=== PATIENT | female | born 1980 | race Two or more races ===

== ENCOUNTER 2021-02-22 18:35 | Emergency (ER) | payer OTHER ==
--- NOTE | 2021-02-22 21:46 | ED Physician Documentation ---
PD HPI ABD PAIN - Stated complaint Stated Complaint: ABD PX - Chief complaint Chief Complaint: Abd Pain - History obtained from History obtained from: Patient - History of Present Illness Timing - onset: How many weeks ago (2) Timing - details: Constant, Waxing and waning Quality: Cramping, Pain Location: All over / everywhere (predominantly across upper abdomen) Improved by: Laying still Worsened by: Eating, Palpation Associated symptoms: Nausea. No: Fever, Vomiting Similar symptoms before: Has not had sx before Recently seen: Not recently seen - Additional information Additional information: patient is hearing impaired; [employer] used for ASL translation. patient is visiting from [place]. She c/o constant cramping pain in abdomen, predominantly across upper abdomen and worst in epigastrium. It is worse with eating. She has had nausea but no vomiting. Pain started 2 weeks ago. She says she has had a cholecystectomy. She also says she gets heartburn but her usual meds (omeprazole and myl[place]) have not been helping with these symptoms recently. Review of Systems Constitutional: denies: Fever Cardiac: denies: Chest pain / pressure Respiratory: denies: Cough GI: reports: Abdominal Pain, Nausea. denies: Vomiting PD PAST MEDICAL HISTORY - Past Medical History Past Medical History: Yes GI: GERD - Past Surgical History General: Cholecystectomy - Present Medications Home Medications: Ambulatory Orders Medication Instructions Recorded Confirmed Ondansetron Odt [Zofran] 4 mg TL Q6H PRN #14 tablet 02/23/21 oxyCODONE [Roxicodone] 5 - 10 mg PO Q6H PRN #14 tablet 02/23/21 - Allergies Allergies/Adverse Reactions: Allergies Allergy/AdvReac Type Severity Reaction Status Date / Time Penicillins Allergy Unknown Verified 02/22/21 22:43 PD ED PE NORMAL - Vitals Vital signs reviewed: Yes - General General: Alert and oriented X 3, No acute distress, Well developed/nourished - HEENT HEENT: Moist mucous membranes - Neck Neck: Supple, no meningeal sign - Cardiac Cardiac: RRR, No murmur - Respiratory Respiratory: No respiratory distress, Clear bilaterally - Abdomen Abdomen: Soft, Non distended, Other (diffusely TTP, most tender across upper abdomen. no rebound, no guarding) - Derm Derm: Normal color, Warm and dry Results - Vitals Vitals: Vital Signs - 24 hr 02/22/21 02/22/21 02/22/21 18:52 19:00 20:58 Temperature 36.8 C 36.9 C Heart Rate 76 109 H 101 H Respiratory 15 18 18 Rate Blood Pressure 129/71 136/88 H 134/82 H O2 Saturation 100 100 100 02/22/21 02/22/21 02/23/21 22:00 23:15 00:31 Temperature 36.9 C Heart Rate 109 H 98 Respiratory 18 Rate Blood Pressure 136/88 H 116/75 O2 Saturation 98 02/23/21 02/23/21 02:33 02:41 Temperature 36.8 C 36.8 C Heart Rate 101 H 101 H Respiratory 16 16 Rate Blood Pressure 126/89 H 126/89 H O2 Saturation 98 98 Oxygen O2 Source Room air - Labs Labs: Laboratory Tests 02/22/21 02/22/21 02/22/21 22:14 23:03 23:03 WBC 13.4 H RBC 4.34 Hgb 13.0 Hct 39.7 MCV 91.5 MCH 30.0 MCHC 32.7 RDW 13.1 Plt Count 346 MPV 9.3 Neut # (Auto) 9.2 H Lymph # (Auto) 2.9 Carbon # (Auto) 1.2 H Eos # (Auto) 0.0 Baso # (Auto) 0.0 Absolute Nucleated RBC 0.00 Nucleated RBC % 0.0 Sodium 137 Potassium 3.2 L Chloride 106 Carbon Dioxide 23 Anion Gap 8.0 BUN 7 Creatinine 0.6 Estimated GFR (MDRD) 110 Glucose 93 Calcium 8.1 L Total Bilirubin 0.8 AST 27 ALT 48 Alkaline Phosphatase 102 Total Protein 6.8 Albumin 2.9 L Globulin 3.9 Albumin/Globulin Ratio 0.7 L Lipase 29 Serum HCG, Qual NEGATIVE Urine Color Urine Clarity Urine pH Ur Specific Fowler Urine Protein Urine Glucose (UA) Urine Ketones Urine Occult Blood Urine Nitrite Urine Bilirubin Urine Urobilinogen Ur Leukocyte Esterase Urine RBC Urine WBC Ur Squamous Epith Cells Urine Bacteria Ur Microscopic Review Urine Culture Comments Urine HCG, Qual 02/22/21 23:43 WBC RBC Hgb Hct MCV MCH MCHC RDW Plt Count MPV Neut # (Auto) Lymph # (Auto) Carbon # (Auto) Eos # (Auto) Baso # (Auto) Absolute Nucleated RBC Nucleated RBC % Sodium Potassium Chloride Carbon Dioxide Anion Gap BUN Creatinine Estimated GFR (MDRD) Glucose Calcium Total Bilirubin AST ALT Alkaline Phosphatase Total Protein Albumin Globulin Albumin/Globulin Ratio Lipase Serum HCG, Qual Urine Color YELLOW Urine Clarity CLEAR Urine pH 6.5 Ur Specific Fowler 1.020 Urine Protein NEGATIVE Urine Glucose (UA) NEGATIVE Urine Ketones >=80 H Urine Occult Blood MODERATE H Urine Nitrite NEGATIVE Urine Bilirubin NEGATIVE Urine Urobilinogen 1 (NORMAL) Ur Leukocyte Esterase NEGATIVE Urine RBC 6-10 H Urine WBC 0-3 Ur Squamous Epith Cells MOD Squamous H Urine Bacteria Rare Ur Microscopic Review INDICATED Urine Culture Comments NOT INDICATED Urine HCG, Qual NEGATIVE - Rads (name of study) CT A/P with IV contrast Radiology: Prelim report reviewed, See rad report PD MEDICAL DECISION MAKING - ED course Complexity details: reviewed results, re-evaluated patient, considered differential, d/w patient ED course: Reassuring blood tests (mild leukocytosis, mild hypokalemia). Despite normal lipase, CT A/P reveals peripancreatic inflammation s/o pancreatitis. I reviewed these results with patient; she reports good pain relief with the toradol and no nausea after IV zofran. She still has some pain and some residual TTP in epigastrium; she is provided a take-home pack of percocet and rx for oxycodone and zofran. Instructed to avoid fatty/greasy/fried foods, and to start with liquid diet today, advance each day as tolerated. I am prescribing a short course of short-acting opioid pain medication for this patient. I have reviewed the patients [employer] and no concerning findings were noted. I have discussed that the opioids are for short term therapy only, and will not be refilled from the ED. Departure - Departure Disposition: 01 Home, Self Care Clinical Impression: Pancreatitis Qualifiers: Chronicity: acute Pancreatitis type: unspecified pancreatitis type Acute pancreatitis complication: no infection or necrosis Qualified Code(s): K85.90 - Acute pancreatitis without necrosis or infection, unspecified Condition: Good Instructions: ED Pancreatitis Prescriptions: oxyCODONE [Roxicodone] 5 - 10 mg PO Q6H PRN #14 tablet PRN Reason: Pain Ondansetron Odt [Zofran] 4 mg TL Q6H PRN #14 tablet PRN Reason: Nausea / Vomiting Forms: Activity restrictions Discharge Date/Time: 02/23/21 03:02
[2021-02-22] MEDS ORDERED: SODIUM CHLORIDE 0.9% 1,000 ML IV STA (22:06)
[2021-02-22] MEDS ORDERED: KETOROLAC 30 MG/ML VIAL IVP STA (22:06)
[2021-02-22] MEDS ORDERED: ONDANSETRON 4 MG/2 ML VIAL IVP STA (22:06)
[2021-02-22 22:22] LABS: BASOPHILS % (AUTO) 0.2 %; EOSINOPHILS % (AUTO) 0.2 %; HCT - HEMATOCRIT 39.7 % (37.0-47.0); LYMPHOCYTES # (AUTO) 2.9 10^3/uL (1.5-3.5); LYMPHOCYTES % (AUTO) 21.6 %; MEAN CORPUSCULAR HGB CONC 32.7 g/dL (32.0-36.0); MEAN CORPUSCULAR VOLUME 91.5 fL (81.0-99.0); MEAN PLATELET VOLUME 9.3 fL (7.9-10.8); MONOCYTES # (AUTO) 1.2 10^3/uL (0.0-1.0); MONOCYTES % (AUTO) 8.7 %; NEUTROPHILS # (AUTO) 9.2 10^3/uL (1.5-6.6); NEUTROPHILS % (AUTO) 68.9 %; PLT - PLATELET COUNT 346 10^3/uL (130-450); RED BLOOD COUNT 4.34 10^6/uL (4.20-5.40); RED CELL DISTRIBUTION WIDTH 13.1 % (12.0-15.0); WHITE BLOOD COUNT 13.4 x10^3/uL (4.8-10.8)
[2021-02-22] MEDS ORDERED: PANTOPRAZOLE 40 MG VIAL IVP STA (22:25)
[2021-02-22] MEDS ORDERED: IOPAMIDOL-300 100 ML VIAL ONE (22:47)
[2021-02-22 23:25] LABS: ALBUMIN 2.9 g/dL (3.2-5.5); ALBUMIN/GLOBULIN RATIO 0.7 (1.0-2.2); BILIRUBIN,TOTAL 0.8 mg/dL (0.2-1.0); CALCIUM 8.1 mg/dL (8.5-10.3); CREATININE 0.6 mg/dL (0.4-1.0); POTASSIUM 3.2 mmol/L (3.5-5.0); TOTAL PROTEIN 6.8 g/dL (6.7-8.2)
[2021-02-22 23:55] LABS: GLUCOSE, URINE (UA) NEGATIVE (NEGATIVE); KETONES,URINE (UA) >=80 mg/dL (NEGATIVE); LEUKOCYTE ESTERASE, URINE NEGATIVE (NEGATIVE); NITRITE,URINE NEGATIVE (NEGATIVE); OCCULT BLOOD,URINE MODERATE (NEGATIVE); PH,URINE 6.5 PH (5.0-7.5); PROTEIN,URINE NEGATIVE (NEGATIVE); UROBILINOGEN,URINE 1 (NORMAL) E.U./dL (NORMAL)
[2021-02-23] LABS: BILIRUBIN,URINE NEGATIVE (NEGATIVE); CLARITY,URINE CLEAR (CLEAR); HCG UR QUAL NEGATIVE; ICTOTEST,URINE NEGATIVE
[2021-02-23 00:03] LABS: BACTERIA,URINE Rare /HPF (None Seen); SQUAMOUS EPITHELIAL CELL,UR MOD Squamous (<= Few); WBC,URINE 0-3 /HPF (0-5)
[2021-02-23] MEDS ORDERED: IOPAMIDOL-300 100 ML VIAL IVP ONE (00:31)
[2021-02-23 00:50] LABS: HCG,QUALITATIVE BLOOD NEGATIVE
[2021-02-23] MEDS ORDERED: oxyCODONE/ACET 5/325 Prepack 4 PO STA (02:27)
[2021-02-23 02:42] VITALS: BP 126/89
--- NOTE | 2021-02-23 09:22 | CT Report ---
PROCEDURE: Abdomen/Pelvis W INDICATIONS: abdominal pain CONTRAST: IV CONTRAST: Isovue 300 ml: 100 PO CONTRAST: *NO PO CONTRAST TECHNIQUE: After the administration of IV contrast, 5 mm thick sections acquired from the diaphragms to the symp hysis. 5 mm thick coronal and sagittal reformats were acquired. For radiation dose reduction, the f ollowing was used: automated exposure control, adjustment of mA and/or kV according to patient size. COMPARISON: None. FINDINGS: Image quality: Excellent. ABDOMEN: Lung bases: Lung bases are clear. Heart size is normal. Solid organs: Liver and spleen are normal in size and enhancement. Gallbladder is unremarkable Hernandez iary system is non dilated. Pancreas enhances normally without evidence of necrosis. There is peripa ncreatic fat stranding adjacent to the pancreas most notable at the head and body portions. No pancre atic ductal dilation. No abscess or pseudocyst. No adrenal nodules. Kidneys demonstrate normal size and enhancement, without hydronephrosis. Peritoneum and bowel: Bowel loops demonstrate normal wall thickness and caliber. No free fluid or a ir. Nodes and vessels: No retroperitoneal or mesenteric adenopathy by size criteria. Aorta and inferior vena cava are normal in size. Miscellaneous: No ventral hernias. PELVIS: Genitourinary: Bladder wall thickness is normal. Miscellaneous: No inguinal hernias or adenopathy. Bones: No suspicious bony lesions. No vertebral body compression fractures. IMPRESSION: 1. Peripancreatic inflammatory changes as above most consistent with pancreatitis. No abscess or pseu docyst identified. The above findings are concordant with preliminary report. Reviewed by: Mariam Mckeon MD on 02/23/2021 9:20 AM PDT Approved by: Mariam Mckeon MD on 02/23/2021 9:20 AM PDT Station ID: [id number]
== END 2021-02-23 03:02 | disposition home or self-care (01) ==
LOC: EDBD → ED 18:35
DX: K85.90 Acute pancreatitis without necrosis or infection, unspecified (principal)
CPT/HCPCS: 36415; 74177; 80053; 81001; 81025; 83690; 84703; 85025; 96361; 96374; 96375; 99284; Q9967; 81003; 87086